=== PATIENT | female | born 1985 | race Caucasian/White ===

== ENCOUNTER 2016-11-22 20:00 | Emergency (ER) | payer OTHER ==
[2016-11-22 21:38] LABS: CONTROL LINE HCG INT CTR LINE PRESENT
[2016-11-22 21:43] LABS: ANION GAP 7 MEQ/L (8-16); BLOOD UREA NITROGEN 10 MG/DL (7-18); CALCIUM LEVEL 8.6 MG/DL (8.5-10.1); CARBON DIOXIDE LEVEL 29 MEQ/L (21-32); CHLORIDE LEVEL 103 MEQ/L (98-107); CREATININE FOR GFR 0.69 MG/DL (0.55-1.02); GLOMERULAR FILTRATION RATE > 60.0 (>60); GLUCOSE, FASTING 91 MG/DL (70-105); POTASSIUM SERUM 3.4 MEQ/L (3.5-5.1); SODIUM LEVEL 139 MEQ/L (136-145)
[2016-11-22 22:01] LABS: HCG, SERUM QUANTITATIVE 2286 MIU/ML
--- NOTE | 2016-11-22 23:10 | REPUSA ---
CLINICAL HISTORY: abdominal pain and vaginal spotting. TECHNIQUE: Transabdominal and endovaginal ultrasound of the pelvis using grayscale and spectral Doppl er flow. FINDINGS: Uterus is anteverted measuring 8.7 x 4.6 x 6.5 cm demonstrating a gestational sac with a mean sac brooks meter of 9.7 mm correlating to 5 weeks, 5 days gestation. No yolk sac was visualized although a pole was seen with CRL measuring 4.8 mm correlating to 6 weeks, 1 days gestation. No heartbeat or motion was detected. Right ovary measures 2.6 x 1.9 x 2.1 cm and left ovary measures 2.4 x 1.6 x 2.1 cm; both demonstratin g venous flow. A 1.3 x 1.7 x 1.2 cm right ovarian hemorrhagic follicle noted. IMPRESSION: No heart rate or motion was detected. While this raises suspicion for demise, given the s ize of the CRL and gestational sac, findings may still represent an early IUP. Close clinical follow- up with serial beta hCG and a short interim pelvic ultrasound is recommended to ensure a viable devel oping gestation.
--- NOTE | 2016-11-23 00:15 | EDDOCDS ---
Physician Documentation [facility] Name: Florence Paez Age: 31 yrs Sex: Female : 1985 Arrival Date: 11/22/2016 Time: 20:00 Bed 7 Private MD: [place] [facility] [place]: 11/22/16 23:47 Discharged to Home/Self Care. Impression: Threatened . - Condition is Stable. - Discharge Instructions: Threatened Miscarriage, Pelvic Rest. - Medication Reconciliation, Local Pharmacy Hours form. - Follow up: [facility] [place]; When: Tomorrow; Reason: Recheck today's complaints. - Problem is new. - Symptoms have improved. Historical: - Allergies: Vicodin; Naproxen; - Home Meds: 1. Vitamin Oral tab 1 tab once daily - PMHx: none; - PSHx: Cesearean Section; - Social history: Smoking status: Patient states was never smoker of tobacco. No barriers to communication noted, The patient speaks fluent Georgian. - Family history: Not pertinent. - : The pt / caregiver states he / she is not on anticoagulants. Home medication list is obtained from the patient. - Exposure Risk Screening:: None identified. 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 1 in. (154.94 cm) (R); Pain 4/10; 20:43 BP 129 / 74 Supine (auto/); Pulse 85; Pulse Ox 99% on R/A; dsf 20:44 BP 133 / 77 Sitting (auto/); Pulse 89; Pulse Ox 99% on R/A; dsf 20:45 Pulse Ox 99% ; dsf 20:45 BP 139 / 74 Standing (auto/); Pulse 89; Pulse Ox 99% on R/A; dsf 11/23 00:13 BP 113 / 58; Pulse 75; Resp 18; Temp 99.0; Pulse Ox 97% ; Pain 0/10; mlc 02/22 20:03 Body Mass Index 31.18 (74.84 kg, 154.94 cm) gr2 MDM: 11/22 20:36 IV Saline Lock ordered. fg 20:36 Orthostatic VS ordered. fg 20:36 Undress patient appropriately for examination ordered. fg 20:36 Set up pelvic ordered. fg 20:37 Hcg, Serum Quantitative Ordered. EDMS 20:37 Rh Only Ordered. EDMS 20:37 Urinalysis Ordered. EDMS 20:37 Urine Culture Ordered. EDMS 20:37 HCG,Serum Qualitative Ordered. EDMS 20:37 Wet Prep Ordered. EDMS 20:37 GC & Chlamydia Amplification Ordered. EDMS 20:39 Basic Metabolic Profile Ordered. EDMS 21:29 Financial registration complete. gb 21:33 [facility] Payment Agreement was scanned into [employer] and attached to record. gb 22:08 US 1st trimester Ordered. EDMS 22:40 Urinalysis Reviewed. cc10 22:40 HCG,Serum Qualitative Reviewed. cc10 22:40 Basic Metabolic Profile Reviewed. cc10 22:40 Hcg, Serum Quantitative Reviewed. cc10 22:40 Rh Only Reviewed. cc10 22:40 Wet Prep Reviewed. cc10 22:50 TRANSVAGINAL US Ordered. EDMS 22:50 DUPLEX SCAN LIMITED (DOPPLER) Ordered. EDMS Signatures: Dispatcher [employer] EDMS Sabrina Hogan, Reg Reg Lukasz James, POLLY PAJustus cc10 Melinda Rodriguez,RN RN [facility] Char Silva MD MD Lyssa Malagon RN RN tm5 The chart was reviewed and I authenticate all verbal orders and agree with the evaluation and treatment provided.Attachments: 21:33 [facility] [place] Payment Agreement gb MTDD
--- NOTE | 2016-11-23 00:15 | EDDOCDS ---
Nurse's Notes [facility] Name: Florence Paez Age: 31 yrs Sex: Female : 1985 Arrival Date: 11/22/2016 Time: 20:00 Bed 7 Private MD: WILFREDO Pacheco Diagnosis: Threatened Presentation: 11/22 20:05 Presenting complaint: Patient states: per pt she is about 8 weeks with tm5 pinkish/brown discharge since yesterday with pressure to her lower abdomen as well, vaginal discharge is now more red in color tonight also. Risk factors: The patient reports no loss of conciousness prior to arrival. This patient has not had a hysterectomy. This patient has not begun menopause. Adult Sepsis Screening: The patient does not have new or worsening altered mentation. Patient's respiratory rate is less than 22. Systolic blood pressure is greater than 100. Patient has a qSOFA score of 0- Negative Sepsis Screen. Suicide/Homicide risk assessment- the patient denies having any suicidal and/or homicidal ideations and does not present with any other emotional, behavioral or mental health complaints. Status: Patient is not a human service technician or dependent. Transition of care: patient was not received from another setting of care. 20:05 Acuity: MAJO Level 3 tm5 20:05 Method Of Arrival: Walkin/Carried/Asstd tm5 Triage Assessment: 20:07 General: Appears in no apparent distress, Behavior is appropriate for age, cooperative. tm5 Pain: Denies pain. Pt Declines HIV testing. Neurological: Level of Consciousness is awake, alert, Oriented to person, place, time. Respiratory: Airway is patent Respiratory effort is even, unlabored, Respiratory pattern is regular, symmetrical. : Reports vaginal bleeding that is brown spotty since yesterday. Derm: Skin is pink, warm & dry. CORRAL BOSS: 20:07 LMP 09/26/2016, Verified, EDC 07/03/2017, Gestational age from LMP: 8 weeks 2 tm5 days Historical: - Allergies: Vicodin; Naproxen; - Home Meds: 1. Vitamin Oral tab 1 tab once daily - PMHx: none; - PSHx: Cesearean Section; - Social history: Smoking status: Patient states was never smoker of tobacco. No barriers to communication noted, The patient speaks fluent Bengali. - Family history: Not pertinent. - : The pt / caregiver states he / she is not on anticoagulants. Home medication list is obtained from the patient. - Exposure Risk Screening:: None identified. Screenin:09 Screening information is obtained from the patient. Fall risk: No risks identified. tm5 Assistance ADL's: requires no assistance with activities of daily living. Abuse/DV Screen: The patient / caregiver reports he/she is: not in a situation that causes fear, pain or injury. Nutritional screening: No deficits noted. Advance Directives: There is no active DNR order. home support is adequate. Assessment: 20:48 Adult Sepsis Screening: The patient does not have new or worsening altered mentation. dsf Patient's respiratory rate is less than 22. Systolic blood pressure is greater than 100. Patient has a qSOFA score of 0- Negative Sepsis Screen. General: Appears in no apparent distress, Behavior is appropriate for age, cooperative. Pain: Location: right lower quadrant and left lower quadrant Pain currently is 2 out of 10 on a pain scale. Quality of pain is described as pressure. Neurological: Level of Consciousness is awake, alert. Cardiovascular: Capillary refill < 3 seconds. Respiratory: Airway is patent Respiratory effort is even, unlabored, Respiratory pattern is regular, symmetrical. GI: Abdomen is non- distended Reports lower abdominal pain. : Reports vaginal bleeding that is spotty since yesterday. Derm: Skin is pink, warm & dry. 21:00 General: Appears in no apparent distress, comfortable, Behavior is cooperative, mlc pleasant. Pain: Location: right upper quadrant, left upper quadrant, right lower quadrant and left lower quadrant Pain currently is 7 out of 10 on a pain scale. Quality of pain is described as pressure, stabbing. Neurological: Level of Consciousness is awake, alert, Oriented to person, place, time. Neurological: Denies dizziness. Respiratory: Airway is patent Respiratory effort is even, unlabored, Respiratory pattern is regular. GI: Abdomen is non- distended Bowel sounds present X 4 quads. Abd is soft and non tender X 4 quads. Derm: Skin is normal. 21:22 Reassessment: Patient appears in no apparent distress at this time. pelvic exam mlc complete. pt tolerated well. . 22:14 Reassessment: Patient appears in no apparent distress at this time. no changes since mlc prior. resp easy/unlabored. . 11/23 00:13 General: Appears in no apparent distress, comfortable, Behavior is cooperative. Pain: mlc Denies pain. Neurological: Level of Consciousness is awake, alert, Oriented to person, place, time. Respiratory: Airway is patent Respiratory effort is even, unlabored, Respiratory pattern is regular. Derm: Skin is normal. Vital Signs: 11/22 20:03 BP 131 / 58; Pulse 80; Resp 18 S; Temp 98.1; Pulse Ox 100% on R/A; Weight 74.84 kg (R); gr2 Height 5 ft. 1 in. (154.94 cm) (R); Pain 4/10; 20:43 BP 129 / 74 Supine (auto/); Pulse 85; Pulse Ox 99% on R/A; dsf 20:44 BP 133 / 77 Sitting (auto/); Pulse 89; Pulse Ox 99% on R/A; dsf 20:45 Pulse Ox 99% ; dsf 20:45 BP 139 / 74 Standing (auto/); Pulse 89; Pulse Ox 99% on R/A; dsf 11/23 00:13 BP 113 / 58; Pulse 75; Resp 18; Temp 99.0; Pulse Ox 97% ; Pain 0/10; mlc 11/22 20:03 Body Mass Index 31.18 (74.84 kg, 154.94 cm) gr2 Vitals: 11/22 20:03 Log In Time: November 22, 2016 at 20:03. gr2 ED Course: 20:02 Patient visited by Cedric Joyner. gr2 20:02 [place] [facility] [place]. gr2 20:02 Patient moved to Waiting gr2 20:04 Patient visited by Cedric Joyner. gr2 20:04 Patient moved to Pre RCE gr2 20:07 Triage Initiated tm5 20:07 Family accompanied patient. tm5 20:23 Char Silva MD is Attending Physician. fg 20:23 Patient visited by Char Silva MD. fg 20:23 Patient moved to 7 ttb 21:00 Melinda Rodriguez,RAJAN is Primary Nurse. mlc 21:00 The patient / caregiver is instructed regarding the plan of care and ED course. mlc 21:00 Basic Metabolic Profile Sent. mlc 21:00 GC & Chlamydia Amplification Sent. mlc 21:00 HCG,Serum Qualitative Sent. mlc 21:00 Hcg, Serum Quantitative Sent. [facility] [place] 21:00 Rh Only Sent. [facility] 21:00 Urinalysis Sent. [facility] 21:00 Urine Culture Sent. [facility] 21:00 Inserted saline lock: 20 gauge in left antecubital area and blood collected. The [facility] patient tolerated the procedure well. 21:02 Patient visited by Melinda Rodriguez,RAJAN. mlc 21:21 Wet Prep Sent. [facility] 21:22 Patient visited by Melinda Rodriguez RN. [facility] 21:22 Assist provider with pelvic exam: Set up pelvic tray. Specimens sent to lab. Performed mlc by Char Silva MD Patient tolerated well. 21:31 Patient name changed from Florence\S\\S\Haake\S\ to Florence\S\Marie\S\Haake. EDMS 21:33 [facility] [place] Payment Agreement was scanned into [employer] and attached to record. gb 22:12 Patient moved to Ultrasound en 22:14 Flushed left antecubital saline lock. mlc 22:15 Patient visited by Melinda Rodriguez RN. [facility] 22:39 Patient moved to 7 [facility] 23:17 US 1st trimester Returned. EDMS 23:18 Patient visited by Char Silva MD. fg 23:47 [place], OB is Referral Physician. fg 11/23 00:13 Discontinued IV lock intact, bleeding controlled, pressure dressing applied, No mlc redness/swelling at site. Order Results: Lab Order: Hcg, Serum Quantitative; SPEC'M 11/22/16 20:47 Test: HCG, SERUM QUANTITATIVE; Value: 2286; Units: MIU/ML; Status: F Test Note: ; GESTATIONAL AGE APPROXIMATE HCG RANGE (MIU/ML) 0.2-1 WEEK 5-50 1-2 WEEKS 50-500 2-3 WEEKS 100-5,000 3-4 WEEKS 500-10,000 4-5 WEEKS 1,000-50,000 5-6 WEEKS 10,000-100,000 6-8 WEEKS 15,000-200,000 2-3 MONTHS 10,000-100,000 NON FEMALES LESS THAN 3.0 Patient samples may contain human heterophilic antibodies that could react with immunoassays to give falsely elevated or depressed results. This assay has been designed to minimize interference from heterophilic antibodies. Elevated hCG levels have also been associated with trophoblastic disease and nontrophoblastic neoplasms. The possibility of having these diseases should be considered before a diagnosis of is made. This test is not intended for use as a surrogate marker for aiding in the diagnosis or monitoring the treatment of cancer patients. [employer] [place] [employer] methodology. Lab Order: Rh Only; SPEC'M 11/22/16 20:47 Test: RH; Value: POSITIVE; Status: F Lab Order: Urinalysis; SPEC'M 11/22/16 20:47 Test: APPEARANCE, URINE; Value: CLOUDY; Range: CLEAR; Abnormal: Above high normal; Status: F Test: COLOR, URINE; Value: YELLOW; Range: YELLOW; Status: F Test: PH,URINE; Value: 7.0; Range: 5.0-9.0; Units: UNITS; Status: F Test: SPECIFIC GRAVITY URINE AUTO; Value: 1.008; Range: 1.002-1.035; Status: F Test: PROTEIN, URINE AUTO; Value: NEGATIVE; Range: NEGATIVE; Units: mg/dL; Status: F Test: GLUCOSE, URINE (UA) AUTO; Value: NEGATIVE; Range: NEGATIVE; Units: mg/dL; Status: F Test: KETONE, URINE AUTO; Value: NEGATIVE; Range: NEGATIVE; Units: mg/dL; Status: F Test: UROBILINOGEN, URINE AUTO; Value: 0.2; Range: 0.0-2.0; Units: mg/dL; Status: F Test: BILIRUBIN, URINE AUTO; Value: NEGATIVE; Range: NEGATIVE; Status: F Test: NITRITE, URINE AUTO; Value: NEGATIVE; Range: NEGATIVE; Status: F Test: LEUKOCYTE ESTERASE, URINE AUTO; Value: NEGATIVE; Range: NEGATIVE; Status: F Test: BLOOD, URINE BLOOD; Value: 1+; Range: NEGATIVE; Abnormal: Above high normal; Status: F Test: WBC, URINE AUTO; Value: 1; Range: 0-3; Units: /HPF; Status: F Test: RBC, URINE AUTO; Value: 1; Range: 0-3; Units: /HPF; Status: F Test: BACTERIA, URINE AUTO; Value: NEGATIVE; Range: NEGATIVE; Status: F Test: SQUAMOUS EPITHELIAL CELL UR AU; Value: 3; Range: 0-6; Units: /HPF; Status: F Test: HYALINE CAST, URINE AUTO; Value: 0; Range: 0-1; Units: /LPF; Status: F Test: AMORPHOUS SEDIMENT; Value: SMALL; Range: NEGATIVE; Abnormal: Above high normal; Status: F Lab Order: HCG,Serum Qualitative; SPEC' 11/22/16 20:47 Test: HCG, SERUM QUALITATIVE; Value: POSITIVE; Range: NEGATIVE; Abnormal: Abnormal; Status: F Lab Order: Wet Prep; [facility] 11/22/16 20:47 Test: WET PREP; Value: WET PREP RESULT; Status: F Test: WET PREP; Value: FEW EPITHELIAL CELLS PRESENT; Status: F Test: WET PREP; Value: FEW WBC; Status: F Test: WET PREP; Value: MANY RBC; Status: F Test: WET PREP; Value: FEW LONG RODS PRESENT; Status: F Test: WET PREP; Value: FEW SHORT RODS PRESENT; Status: F Lab Order: Basic Metabolic Profile; [facility] 11/22/16 20:47 Test: GLUCOSE, FASTING; Value: 91; Range: 70-105; Units: MG/DL; Status: F Test: BLOOD UREA NITROGEN; Value: 10; Range: 7-18; Units: MG/DL; Status: F Test: CREATININE FOR GFR; Value: 0.69; Range: 0.55-1.02; Units: MG/DL; Status: F Test: GLOMERULAR FILTRATION RATE; Value: > 60.0; Range: >60; Status: F Test: SODIUM LEVEL; Value: 139; Range: 136-145; Units: MEQ/L; Status: F Test: POTASSIUM SERUM; Value: 3.4; Range: 3.5-5.1; Abnormal: Below low normal; Units: MEQ/L; Status: F Test: CHLORIDE LEVEL; Value: 103; Range: 98-107; Units: MEQ/L; Status: F Test: CARBON DIOXIDE LEVEL; Value: 29; Range: 21-32; Units: MEQ/L; Status: F Test: ANION GAP; Value: 7; Range: 8-16; Abnormal: Below low normal; Units: MEQ/L; Status: F Test: CALCIUM LEVEL; Value: 8.6; Range: 8.5-10.1; Units: MG/DL; Status: F Test Note: ; Units are mL/min/1.73 m2 Chronic Kidney Disease Staging per NKF: Stage I & II GFR >=60 Normal to Mildly Decreased Stage III GFR 30-59 Moderately Decreased Stage IV GFR 15-29 Severely Decreased Stage V GFR <15 Very Little GFR Left ESRD GFR <15 on CANE FLUME WATCHMAN Radiology Order: US 1st trimester Test: US 1st trimester REASON FOR EXAMINATION: Abdomen Pain; ; CLINICAL HISTORY: abdominal pain and vaginal spotting.; TECHNIQUE: Transabdominal and endovaginal ultrasound of the pelvis using grayscale and spectral Doppl; er flow.; FINDINGS:; Uterus is anteverted measuring 8.7 x 4.6 x 6.5 cm demonstrating a gestational sac with a mean sac brooks; meter of 9.7 mm correlating to 5 weeks, 5 days gestation. No yolk sac was visualized although a ; pole was seen with CRL measuring 4.8 mm correlating to 6 weeks, 1 days gestation.; No heartbeat or motion was detected.; Right ovary measures 2.6 x 1.9 x 2.1 cm and left ovary measures 2.4 x 1.6 x 2.1 cm; both demonstratin; g venous flow. A 1.3 x 1.7 x 1.2 cm right ovarian hemorrhagic follicle noted.; IMPRESSION:; No heart rate or motion was detected. While this raises suspicion for demise, given the s; ize of the CRL and gestational sac, findings may still represent an early IUP. Close clinical follow-; up with serial beta hCG and a short interim pelvic ultrasound is recommended to ensure a viable devel; oping gestation.; ; Outcome: 11/22 23:47 Discharge ordered by Provider. fg 11/23 00:13 Discharge Assessment: Patient awake, alert and oriented x 3. No cognitive and/or mlc functional deficits noted. Patient verbalized understanding of disposition instructions. patient administered narcotics - no. The following High Risk Discharge criteria are identified: None. Discharged to home ambulatory, with family. Condition: good Condition: stable. Discharge instructions given to patient, Instructed on discharge instructions, follow up and referral plans. Demonstrated understanding of instructions, Pt was receptive of discharge instructions/ teaching. Ultrasound Study completed. Property sent home with patient. 00:14 [place] left the ED. [facility] [place] Signatures: Dispatcher [employer] EDSabrina Menjivar, Reg Kathryn Bo,RN RN dsf Hubert, Chelsey, RN RN ttb Cedric Joyner gr2 Melinda Rodriguez,RAJAN RN Suni Pacheco Frances, MD MD Lyssa Malagon,RN RN tm5 MTDD
--- NOTE | 2016-11-25 01:16 | EDDOCDS ---
Physician Documentation [facility] Name: Florence Paez Age: 31 yrs Sex: Female : 1985 Arrival Date: 11/22/2016 Time: 20:00 Bed 7 Private MD: [place] [facility] [place] Disposition: 11/22/16 23:47 Discharged to Home/Self Care. Impression: Threatened . - Condition is Stable. - Discharge Instructions: Threatened Miscarriage, Pelvic Rest. - Medication Reconciliation, Local Pharmacy Hours form. - Follow up: [facility] [place]; When: Tomorrow; Reason: Recheck today's complaints. - Problem is new. - Symptoms have improved. Historical: - Allergies: Vicodin; Naproxen; - Home Meds: 1. Vitamin Oral tab 1 tab once daily - PMHx: none; - PSHx: Cesearean Section; - Social history: Smoking status: Patient states was never smoker of tobacco. No barriers to communication noted, The patient speaks fluent Rwandan. - Family history: Not pertinent. - : The pt / caregiver states he / she is not on anticoagulants. Home medication list is obtained from the patient. - Exposure Risk Screening:: None identified. 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 1 in. (154.94 cm) (R); Pain 4/10; 20:43 BP 129 / 74 Supine (auto/); Pulse 85; Pulse Ox 99% on R/A; dsf 20:44 BP 133 / 77 Sitting (auto/); Pulse 89; Pulse Ox 99% on R/A; dsf 20:45 Pulse Ox 99% ; dsf 20:45 BP 139 / 74 Standing (auto/); Pulse 89; Pulse Ox 99% on R/A; dsf 11/23 00:13 BP 113 / 58; Pulse 75; Resp 18; Temp 99.0; Pulse Ox 97% ; Pain 0/10; mlc 02/22 20:03 Body Mass Index 31.18 (74.84 kg, 154.94 cm) gr2 MDM: 11/22 20:36 IV Saline Lock ordered. fg 20:36 Orthostatic VS ordered. fg 20:36 Undress patient appropriately for examination ordered. fg 20:36 Set up pelvic ordered. fg 20:37 Hcg, Serum Quantitative Ordered. EDMS 20:37 Rh Only Ordered. EDMS 20:37 Urinalysis Ordered. EDMS 20:37 Urine Culture Ordered. EDMS 20:37 HCG,Serum Qualitative Ordered. EDMS 20:37 Wet Prep Ordered. EDMS 20:37 GC & Chlamydia Amplification Ordered. EDMS 20:39 Basic Metabolic Profile Ordered. EDMS 21:29 Financial registration complete. gb 21:33 [facility] [place] Agreement was scanned into [employer] and attached to record. gb 22:08 US 1st trimester Ordered. EDMS 22:40 Urinalysis Reviewed. cc10 22:40 HCG,Serum Qualitative Reviewed. cc10 22:40 Basic Metabolic Profile Reviewed. cc10 22:40 Hcg, Serum Quantitative Reviewed. cc10 22:40 Rh Only Reviewed. cc10 22:40 Wet Prep Reviewed. cc10 22:50 TRANSVAGINAL US Ordered. EDMS 22:50 DUPLEX SCAN LIMITED (DOPPLER) Ordered. EDAK 11/23 18:21 T-Sheet-- Draft Copy was scanned into [employer] and attached to record. klr Signatures: Dispatcher [employer] EDAK Sabrina Hogan, Reg Reg gb Lukasz James, PA-C PA-C cc10 Melinda Rodriguez RN RN [facility] [place] Char Silva MD MD fg Redder, Kathie klr Matice, Tonya, RN RN tm5 The chart was reviewed and I authenticate all verbal orders and agree with the evaluation and treatment provided.Attachments: 11/22 21:33 [facility] [place] Payment Agreement gb 11/23 18:21 T-Sheet-- Draft Copy klr Chart Complete MTDD
--- NOTE | 2016-11-25 01:16 | EDDOCDS ---
Nurse's Notes [facility] Name: Florence Paez Age: 31 yrs Sex: Female : 1985 Arrival Date: 11/22/2016 Time: 20:00 Bed 7 Private MD: WILFREDO Pacheco Diagnosis: Threatened Presentation: 11/22 20:05 Presenting complaint: Patient states: per pt she is about 8 weeks with tm5 pinkish/brown discharge since yesterday with pressure to her lower abdomen as well, vaginal discharge is now more red in color tonight also. Risk factors: The patient reports no loss of conciousness prior to arrival. This patient has not had a hysterectomy. This patient has not begun menopause. Adult Sepsis Screening: The patient does not have new or worsening altered mentation. Patient's respiratory rate is less than 22. Systolic blood pressure is greater than 100. Patient has a qSOFA score of 0- Negative Sepsis Screen. Suicide/Homicide risk assessment- the patient denies having any suicidal and/or homicidal ideations and does not present with any other emotional, behavioral or mental health complaints. Status: Patient is not a special services coordinator or dependent. Transition of care: patient was not received from another setting of care. 20:05 Acuity: MAJO Level 3 tm5 20:05 Method Of Arrival: Walkin/Carried/Asstd tm5 Triage Assessment: 20:07 General: Appears in no apparent distress, Behavior is appropriate for age, cooperative. tm5 Pain: Denies pain. Pt Declines HIV testing. Neurological: Level of Consciousness is awake, alert, Oriented to person, place, time. Respiratory: Airway is patent Respiratory effort is even, unlabored, Respiratory pattern is regular, symmetrical. : Reports vaginal bleeding that is brown spotty since yesterday. Derm: Skin is pink, warm & dry. 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 Vitamin Oral tab 1 tab once daily - PMHx: none; - PSHx: Cesearean Section; - Social history: Smoking status: Patient states was never smoker of tobacco. No barriers to communication noted, The patient speaks fluent Sinhala. - Family history: Not pertinent. - : The pt / caregiver states he / she is not on anticoagulants. Home medication list is obtained from the patient. - Exposure Risk Screening:: None identified. Screenin:09 Screening information is obtained from the patient. Fall risk: No risks identified. tm5 Assistance ADL's: requires no assistance with activities of daily living. Abuse/DV Screen: The patient / caregiver reports he/she is: not in a situation that causes fear, pain or injury. Nutritional screening: No deficits noted. Advance Directives: There is no active DNR order. home support is adequate. Assessment: 20:48 Adult Sepsis Screening: The patient does not have new or worsening altered mentation. dsf Patient's respiratory rate is less than 22. Systolic blood pressure is greater than 100. Patient has a qSOFA score of 0- Negative Sepsis Screen. General: Appears in no apparent distress, Behavior is appropriate for age, cooperative. Pain: Location: right lower quadrant and left lower quadrant Pain currently is 2 out of 10 on a pain scale. Quality of pain is described as pressure. Neurological: Level of Consciousness is awake, alert. Cardiovascular: Capillary refill < 3 seconds. Respiratory: Airway is patent Respiratory effort is even, unlabored, Respiratory pattern is regular, symmetrical. GI: Abdomen is non- distended Reports lower abdominal pain. : Reports vaginal bleeding that is spotty since yesterday. Derm: Skin is pink, warm & dry. 21:00 General: Appears in no apparent distress, comfortable, Behavior is cooperative, mlc pleasant. Pain: Location: right upper quadrant, left upper quadrant, right lower quadrant and left lower quadrant Pain currently is 7 out of 10 on a pain scale. Quality of pain is described as pressure, stabbing. Neurological: Level of Consciousness is awake, alert, Oriented to person, place, time. Neurological: Denies dizziness. Respiratory: Airway is patent Respiratory effort is even, unlabored, Respiratory pattern is regular. GI: Abdomen is non- distended Bowel sounds present X 4 quads. Abd is soft and non tender X 4 quads. Derm: Skin is normal. 21:22 Reassessment: Patient appears in no apparent distress at this time. pelvic exam mlc complete. pt tolerated well. . 22:14 Reassessment: Patient appears in no apparent distress at this time. no changes since mlc prior. resp easy/unlabored. . 11/23 00:13 General: Appears in no apparent distress, comfortable, Behavior is cooperative. Pain: mlc Denies pain. Neurological: Level of Consciousness is awake, alert, Oriented to person, place, time. Respiratory: Airway is patent Respiratory effort is even, unlabored, Respiratory pattern is regular. Derm: Skin is normal. Vital Signs: 11/22 20:03 BP 131 / 58; Pulse 80; Resp 18 S; Temp 98.1; Pulse Ox 100% on R/A; Weight 74.84 kg (R); gr2 Height 5 ft. 1 in. (154.94 cm) (R); Pain 4/10; 20:43 BP 129 / 74 Supine (auto/); Pulse 85; Pulse Ox 99% on R/A; dsf 20:44 BP 133 / 77 Sitting (auto/); Pulse 89; Pulse Ox 99% on R/A; dsf 20:45 Pulse Ox 99% ; dsf 20:45 BP 139 / 74 Standing (auto/); Pulse 89; Pulse Ox 99% on R/A; dsf 11/23 00:13 BP 113 / 58; Pulse 75; Resp 18; Temp 99.0; Pulse Ox 97% ; Pain 0/10; mlc 11/22 20:03 Body Mass Index 31.18 (74.84 kg, 154.94 cm) gr2 Vitals: 11/22 20:03 Log In Time: November 22, 2016 at 20:03. gr2 ED Course: 20:02 Patient visited by Cedric Joyner. gr2 20:02 Tara [facility] is Private Physician. gr2 20:02 Patient moved to Waiting gr2 20:04 Patient visited by Cedric Joyner. gr2 20:04 Patient moved to Pre RCE gr2 20:07 Triage Initiated tm5 20:07 Family accompanied patient. tm5 20:23 Char Silva MD is Attending Physician. fg 20:23 Patient visited by Char Silva MD. fg 20:23 Patient moved to 7 ttb 21:00 Melinda Rodriguez,RAJAN is Primary Nurse. mlc 21:00 The patient / caregiver is instructed regarding the plan of care and ED course. mlc 21:00 Basic Metabolic Profile Sent. mlc 21:00 GC & Chlamydia Amplification Sent. mlc 21:00 HCG,Serum Qualitative Sent. mlc 21:00 Hcg, Serum Quantitative Sent. [facility] [place] 21:00 Rh Only Sent. [facility] [place] 21:00 Urinalysis Sent. [facility] [place] 21:00 Urine Culture Sent. [facility] [place] 21:00 Inserted saline lock: 20 gauge in left antecubital area and blood collected. The [facility] [place] patient tolerated the procedure well. 21:02 Patient visited by Melinda Rodriguez,RN. mlc 21:21 Wet Prep Sent. [facility] [place] 21:22 Patient visited by Melinda Rodriguez,RAJAN. [facility] [place] 21:22 Assist provider with pelvic exam: Set up pelvic tray. Specimens sent to lab. Performed mlc by Char Silva MD Patient tolerated well. 21:31 Patient name changed from Florence\S\\S\Haake\S\ to Florence\S\Marie\S\Haake. EDMS 21:33 [facility] [place] Payment Agreement was scanned into [employer] and attached to record. gb 22:12 Patient moved to Ultrasound en 22:14 Flushed left antecubital saline lock. mlc 22:15 Patient visited by Melinda Rodriguez RN. [facility] 22:39 Patient moved to 7 [facility] 23:17 US 1st trimester Returned. EDMS 23:18 Patient visited by Char Silva MD. fg 23:47 [place], OB is Referral Physician. fg 11/23 00:13 Discontinued IV lock intact, bleeding controlled, pressure dressing applied, No mlc redness/swelling at site. 18:21 T-Sheet-- Draft Copy was scanned into [employer] and attached to record. klr Order Results: Lab Order: Hcg, Serum Quantitative; SPEC'M 11/22/16 20:47 Test: HCG, SERUM QUANTITATIVE; Value: 2286; Units: MIU/ML; Status: F Test Note: ; GESTATIONAL AGE APPROXIMATE HCG RANGE (MIU/ML) 0.2-1 WEEK 5-50 1-2 WEEKS 50-500 2-3 WEEKS 100-5,000 3-4 WEEKS 500-10,000 4-5 WEEKS 1,000-50,000 5-6 WEEKS 10,000-100,000 6-8 WEEKS 15,000-200,000 2-3 MONTHS 10,000-100,000 NON FEMALES LESS THAN 3.0 Patient samples may contain human heterophilic antibodies that could react with immunoassays to give falsely elevated or depressed results. This assay has been designed to minimize interference from heterophilic antibodies. Elevated hCG levels have also been associated with trophoblastic disease and nontrophoblastic neoplasms. The possibility of having these diseases should be considered before a diagnosis of is made. This test is not intended for use as a surrogate marker for aiding in the diagnosis or monitoring the treatment of cancer patients. [employer] methodology. Lab Order: Rh Only; SPEC'M 11/22/16 20:47 Test: RH; Value: POSITIVE; Status: F Lab Order: Urinalysis; SPEC'M 11/22/16 20:47 Test: APPEARANCE, URINE; Value: CLOUDY; Range: CLEAR; Abnormal: Above high normal; Status: F Test: COLOR, URINE; Value: YELLOW; Range: YELLOW; Status: F Test: PH,URINE; Value: 7.0; Range: 5.0-9.0; Units: UNITS; Status: F Test: SPECIFIC GRAVITY URINE AUTO; Value: 1.008; Range: 1.002-1.035; Status: F Test: PROTEIN, URINE AUTO; Value: NEGATIVE; Range: NEGATIVE; Units: mg/dL; Status: F Test: GLUCOSE, URINE (UA) AUTO; Value: NEGATIVE; Range: NEGATIVE; Units: mg/dL; Status: F Test: KETONE, URINE AUTO; Value: NEGATIVE; Range: NEGATIVE; Units: mg/dL; Status: F Test: UROBILINOGEN, URINE AUTO; Value: 0.2; Range: 0.0-2.0; Units: mg/dL; Status: F Test: BILIRUBIN, URINE AUTO; Value: NEGATIVE; Range: NEGATIVE; Status: F Test: NITRITE, URINE AUTO; Value: NEGATIVE; Range: NEGATIVE; Status: F Test: LEUKOCYTE ESTERASE, URINE AUTO; Value: NEGATIVE; Range: NEGATIVE; Status: F Test: BLOOD, URINE BLOOD; Value: 1+; Range: NEGATIVE; Abnormal: Above high normal; Status: F Test: WBC, URINE AUTO; Value: 1; Range: 0-3; Units: /HPF; Status: F Test: RBC, URINE AUTO; Value: 1; Range: 0-3; Units: /HPF; Status: F Test: BACTERIA, URINE AUTO; Value: NEGATIVE; Range: NEGATIVE; Status: F Test: SQUAMOUS EPITHELIAL CELL UR AU; Value: 3; Range: 0-6; Units: /HPF; Status: F Test: HYALINE CAST, URINE AUTO; Value: 0; Range: 0-1; Units: /LPF; Status: F Test: AMORPHOUS SEDIMENT; Value: SMALL; Range: NEGATIVE; Abnormal: Above high normal; Status: F Lab Order: Urine Culture; SPEC'M 11/22/16 20:47 Test: URINE CULTURE; Value: <EXTERNAL COMMENT eCWMed> FULL REPORT IN LAB NOTES (eCW and Medent).; Status: F Test: URINE CULTURE; Value: URINE CULTURE RESULT SPECIMEN APPEARS CONTAMINATED; Status: F Lab Order: HCG,Serum Qualitative; SPECM 11/22/16 20:47 Test: HCG, SERUM QUALITATIVE; Value: POSITIVE; Range: NEGATIVE; Abnormal: Abnormal; Status: F Lab Order: Wet Prep; SPEC11/22/16 20:47 Test: WET PREP; Value: WET PREP RESULT; Status: F Test: WET PREP; Value: FEW EPITHELIAL CELLS PRESENT; Status: F Test: WET PREP; Value: FEW WBC; Status: F Test: WET PREP; Value: MANY RBC; Status: F Test: WET PREP; Value: FEW LONG RODS PRESENT; Status: F Test: WET PREP; Value: FEW SHORT RODS PRESENT; Status: F Lab Order: GC & Chlamydia Amplification; SPEC11/22/16 20:47 Test: CHLAMYDIA DNA AMPLIFICATION; Value: NEGATIVE; Range: NEGATIVE; Status: F Test: GC DNA AMPLIFICATION; Value: NEGATIVE; Range: NEGATIVE; Status: F Lab Order: Basic Metabolic Profile; SPEC11/22/16 20:47 Test: GLUCOSE, FASTING; Value: 91; Range: 70-105; Units: MG/DL; Status: F Test: BLOOD UREA NITROGEN; Value: 10; Range: 7-18; Units: MG/DL; Status: F Test: CREATININE FOR GFR; Value: 0.69; Range: 0.55-1.02; Units: MG/DL; Status: F Test: GLOMERULAR FILTRATION RATE; Value: > 60.0; Range: >60; Status: F Test: SODIUM LEVEL; Value: 139; Range: 136-145; Units: MEQ/L; Status: F Test: POTASSIUM SERUM; Value: 3.4; Range: 3.5-5.1; Abnormal: Below low normal; Units: MEQ/L; Status: F Test: CHLORIDE LEVEL; Value: 103; Range: 98-107; Units: MEQ/L; Status: F Test: CARBON DIOXIDE LEVEL; Value: 29; Range: 21-32; Units: MEQ/L; Status: F Test: ANION GAP; Value: 7; Range: 8-16; Abnormal: Below low normal; Units: MEQ/L; Status: F Test: CALCIUM LEVEL; Value: 8.6; Range: 8.5-10.1; Units: MG/DL; Status: F Test Note: ; Units are mL/min/1.73 m2 Chronic Kidney Disease Staging per NKF: Stage I & II GFR >=60 Normal to Mildly Decreased Stage III GFR 30-59 Moderately Decreased Stage IV GFR 15-29 Severely Decreased Stage V GFR <15 Very Little GFR Left ESRD GFR <15 on SQL SERVER DBA DEVELOPER Radiology Order: US 1st trimester Test: US 1st trimester REASON FOR EXAMINATION: Abdomen Pain; ; CLINICAL HISTORY: abdominal pain and vaginal spotting.; TECHNIQUE: Transabdominal and endovaginal ultrasound of the pelvis using grayscale and spectral Doppl; er flow.; FINDINGS:; Uterus is anteverted measuring 8.7 x 4.6 x 6.5 cm demonstrating a gestational sac with a mean sac brooks; meter of 9.7 mm correlating to 5 weeks, 5 days gestation. No yolk sac was visualized although a ; pole was seen with CRL measuring 4.8 mm correlating to 6 weeks, 1 days gestation.; No heartbeat or motion was detected.; Right ovary measures 2.6 x 1.9 x 2.1 cm and left ovary measures 2.4 x 1.6 x 2.1 cm; both demonstratin; g venous flow. A 1.3 x 1.7 x 1.2 cm right ovarian hemorrhagic follicle noted.; IMPRESSION:; No heart rate or motion was detected. While this raises suspicion for demise, given the s; ize of the CRL and gestational sac, findings may still represent an early IUP. Close clinical follow-; up with serial beta hCG and a short interim pelvic ultrasound is recommended to ensure a viable devel; oping gestation.; ; Outcome: 11/22 23:47 Discharge ordered by Provider. fg 11/23 00:13 Discharge Assessment: Patient awake, alert and oriented x 3. No cognitive and/or mlc functional deficits noted. Patient verbalized understanding of disposition instructions. patient administered narcotics - no. The following High Risk Discharge criteria are identified: None. Discharged to home ambulatory, with family. Condition: good Condition: stable. Discharge instructions given to patient, Instructed on discharge instructions, follow up and referral plans. Demonstrated understanding of instructions, Pt was receptive of discharge instructions/ teaching. Ultrasound Study completed. Property sent home with patient. 00:14 Patient left the ED. mlc Signatures: Dispatcher [employer] EDMS Sabrina Hogan, Reg Reg gb Kathryn Knapp,RN RN Chelsey Garcia RN RN ttCedric Borrego gr2 Melinda Rodriguez RN RN Suni Pacheco Frances, MD MD fg Redder, Kathie klr Matice, Tonya,RN RN tm5 Chart Complete GRETA
--- NOTE | 2016-11-25 01:16 | EDDOCDS ---
Physician Documentation [facility] Name: Florence Paez Age: 31 yrs Sex: Female : 1985 Arrival Date: 11/22/2016 Time: 20:00 Bed 7 Private MD: Tara [place] Disposition: 11/22/16 23:47 Discharged to Home/Self Care. Impression: Threatened . - Condition is Stable. - Discharge Instructions: Threatened Miscarriage, Pelvic Rest. - Medication Reconciliation, Local Pharmacy Hours form. - Follow up: [facility] [place]; When: Tomorrow; Reason: Recheck today's complaints. - Problem is new. - Symptoms have improved. Historical: - Allergies: Vicodin; Naproxen; - Home Meds: 1. Vitamin Oral tab 1 tab once daily - PMHx: none; - PSHx: Cesearean Section; - Social history: Smoking status: Patient states was never smoker of tobacco. No barriers to communication noted, The patient speaks fluent Ghanaian. - Family history: Not pertinent. - : The pt / caregiver states he / she is not on anticoagulants. Home medication list is obtained from the patient. - Exposure Risk Screening:: None identified. 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 1 in. (154.94 cm) (R); Pain 4/10; 20:43 BP 129 / 74 Supine (auto/); Pulse 85; Pulse Ox 99% on R/A; dsf 20:44 BP 133 / 77 Sitting (auto/); Pulse 89; Pulse Ox 99% on R/A; dsf 20:45 Pulse Ox 99% ; dsf 20:45 BP 139 / 74 Standing (auto/); Pulse 89; Pulse Ox 99% on R/A; dsf 11/23 00:13 BP 113 / 58; Pulse 75; Resp 18; Temp 99.0; Pulse Ox 97% ; Pain 0/10; mlc 02/22 20:03 Body Mass Index 31.18 (74.84 kg, 154.94 cm) gr2 MDM: 11/22 20:36 IV Saline Lock ordered. fg 20:36 Orthostatic VS ordered. fg 20:36 Undress patient appropriately for examination ordered. fg 20:36 Set up pelvic ordered. fg 20:37 Hcg, Serum Quantitative Ordered. EDMS 20:37 Rh Only Ordered. EDMS 20:37 Urinalysis Ordered. EDMS 20:37 Urine Culture Ordered. EDMS 20:37 HCG,Serum Qualitative Ordered. EDMS 20:37 Wet Prep Ordered. EDMS 20:37 GC & Chlamydia Amplification Ordered. EDMS 20:39 Basic Metabolic Profile Ordered. EDMS 21:29 Financial registration complete. gb 21:33 [facility] [place] was scanned into [employer] and attached to record. gb 22:08 US 1st trimester Ordered. EDMS 22:40 Urinalysis Reviewed. cc10 22:40 HCG,Serum Qualitative Reviewed. cc10 22:40 Basic Metabolic Profile Reviewed. cc10 22:40 Hcg, Serum Quantitative Reviewed. cc10 22:40 Rh Only Reviewed. cc10 22:40 Wet Prep Reviewed. cc10 22:50 TRANSVAGINAL US Ordered. EDMS 22:50 DUPLEX SCAN LIMITED (DOPPLER) Ordered. EDWA 11/23 18:21 T-Sheet-- Draft Copy was scanned into [employer] and attached to record. klr Signatures: Dispatcher [employer] EDWA Sabrina Hogan, Reg Reg gb Lukasz James, PA-C PA-C cc10 Melinda Rodriguez RN RN [facility] Char Silva MD MD fg Redder, Kathie klr Matice, Tonya, RN RN tm5 The chart was reviewed and I authenticate all verbal orders and agree with the evaluation and treatment provided.Attachments: 11/22 21:33 [facility] [place] Agreement gb 11/23 18:21 T-Sheet-- Draft Copy klr Chart Complete MTDD
--- NOTE | 2016-11-25 20:44 | EDDOCDS ---
Physician Documentation [facility] Name: Florence Paez Age: 31 yrs Sex: Female : 1985 Arrival Date: 11/22/2016 Time: 20:00 Bed 7 Private MD: Tara [facility] [place] Disposition: 11/22/16 23:47 Discharged to Home/Self Care. Impression: Threatened . - Condition is Stable. - Discharge Instructions: Threatened Miscarriage, Pelvic Rest. - Medication Reconciliation, Local Pharmacy Hours form. - Follow up: OB [place]; When: Tomorrow; Reason: Recheck today's complaints. - Problem is new. - Symptoms have improved. Historical: - Allergies: Vicodin; Naproxen; - Home Meds: 1. Vitamin Oral tab 1 tab once daily - PMHx: none; - PSHx: Cesearean Section; - Social history: Smoking status: Patient states was never smoker of tobacco. No barriers to communication noted, The patient speaks fluent Malagasy. - Family history: Not pertinent. - : The pt / caregiver states he / she is not on anticoagulants. Home medication list is obtained from the patient. - Exposure Risk Screening:: None identified. 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 1 in. (154.94 cm) (R); Pain 4/10; 20:43 BP 129 / 74 Supine (auto/); Pulse 85; Pulse Ox 99% on R/A; dsf 20:44 BP 133 / 77 Sitting (auto/); Pulse 89; Pulse Ox 99% on R/A; dsf 20:45 Pulse Ox 99% ; dsf 20:45 BP 139 / 74 Standing (auto/); Pulse 89; Pulse Ox 99% on R/A; dsf 11/23 00:13 BP 113 / 58; Pulse 75; Resp 18; Temp 99.0; Pulse Ox 97% ; Pain 0/10; mlc 02/22 20:03 Body Mass Index 31.18 (74.84 kg, 154.94 cm) gr2 MDM: 11/22 20:36 IV Saline Lock ordered. fg 20:36 Orthostatic VS ordered. fg 20:36 Undress patient appropriately for examination ordered. fg 20:36 Set up pelvic ordered. fg 20:37 Hcg, Serum Quantitative Ordered. EDMS 20:37 Rh Only Ordered. EDMS 20:37 Urinalysis Ordered. EDMS 20:37 Urine Culture Ordered. EDMS 20:37 HCG,Serum Qualitative Ordered. EDMS 20:37 Wet Prep Ordered. EDMS 20:37 GC & Chlamydia Amplification Ordered. EDMS 20:39 Basic Metabolic Profile Ordered. EDMS 21:29 Financial registration complete. gb 21:33 [facility] Payment Agreement was scanned into [employer] and attached to record. gb 22:08 US 1st trimester Ordered. EDMS 22:40 Urinalysis Reviewed. cc10 22:40 HCG,Serum Qualitative Reviewed. cc10 22:40 Basic Metabolic Profile Reviewed. cc10 22:40 Hcg, Serum Quantitative Reviewed. cc10 22:40 Rh Only Reviewed. cc10 22:40 Wet Prep Reviewed. cc10 22:50 TRANSVAGINAL US Ordered. EDMS 22:50 DUPLEX SCAN LIMITED (DOPPLER) Ordered. EDMD 11/23 18:21 T-Sheet-- Draft Copy was scanned into [employer] and attached to record. klr Signatures: Dispatcher [employer] EDMD Sabrina Hogan, Reg Reg gb Lukasz James, PA-C PA-C cc10 Melinda Rodriguez RN RN [facility] [place] Char Silva MD MD fg Redder, Kathie klr Matice, Tonya, RN RN tm5 The chart was reviewed and I authenticate all verbal orders and agree with the evaluation and treatment provided.Attachments: 11/22 21:33 [facility] Payment Agreement gb 11/23 18:21 T-Sheet-- Draft Copy klr Chart Complete MTDD
--- NOTE | 2016-11-25 20:44 | EDDOCDS ---
Nurse's Notes [facility] Name: Florence Paez Age: 31 yrs Sex: Female : 1985 Arrival Date: 11/22/2016 Time: 20:00 Bed 7 Private MD: WILFREDO Pacheco Diagnosis: Threatened Presentation: 11/22 20:05 Presenting complaint: Patient states: per pt she is about 8 weeks with tm5 pinkish/brown discharge since yesterday with pressure to her lower abdomen as well, vaginal discharge is now more red in color tonight also. Risk factors: The patient reports no loss of conciousness prior to arrival. This patient has not had a hysterectomy. This patient has not begun menopause. Adult Sepsis Screening: The patient does not have new or worsening altered mentation. Patient's respiratory rate is less than 22. Systolic blood pressure is greater than 100. Patient has a qSOFA score of 0- Negative Sepsis Screen. Suicide/Homicide risk assessment- the patient denies having any suicidal and/or homicidal ideations and does not present with any other emotional, behavioral or mental health complaints. Status: Patient is not a visitor services specialist or dependent. Transition of care: patient was not received from another setting of care. 20:05 Acuity: MAJO Level 3 tm5 20:05 Method Of Arrival: Walkin/Carried/Asstd tm5 Triage Assessment: 20:07 General: Appears in no apparent distress, Behavior is appropriate for age, cooperative. tm5 Pain: Denies pain. Pt Declines HIV testing. Neurological: Level of Consciousness is awake, alert, Oriented to person, place, time. Respiratory: Airway is patent Respiratory effort is even, unlabored, Respiratory pattern is regular, symmetrical. : Reports vaginal bleeding that is brown spotty since yesterday. Derm: Skin is pink, warm & dry. OPERATIONS PLANNER: 20:07 LMP 09/26/2016, Verified, EDC 07/03/2017, Gestational age from LMP: 8 weeks 2 tm5 days Historical: - Allergies: Vicodin; Naproxen; - Home Meds: 1. Vitamin Oral tab 1 tab once daily - PMHx: none; - PSHx: Cesearean Section; - Social history: Smoking status: Patient states was never smoker of tobacco. No barriers to communication noted, The patient speaks fluent Sinhala. - Family history: Not pertinent. - : The pt / caregiver states he / she is not on anticoagulants. Home medication list is obtained from the patient. - Exposure Risk Screening:: None identified. Screenin:09 Screening information is obtained from the patient. Fall risk: No risks identified. tm5 Assistance ADL's: requires no assistance with activities of daily living. Abuse/DV Screen: The patient / caregiver reports he/she is: not in a situation that causes fear, pain or injury. Nutritional screening: No deficits noted. Advance Directives: There is no active DNR order. home support is adequate. Assessment: 20:48 Adult Sepsis Screening: The patient does not have new or worsening altered mentation. dsf Patient's respiratory rate is less than 22. Systolic blood pressure is greater than 100. Patient has a qSOFA score of 0- Negative Sepsis Screen. General: Appears in no apparent distress, Behavior is appropriate for age, cooperative. Pain: Location: right lower quadrant and left lower quadrant Pain currently is 2 out of 10 on a pain scale. Quality of pain is described as pressure. Neurological: Level of Consciousness is awake, alert. Cardiovascular: Capillary refill < 3 seconds. Respiratory: Airway is patent Respiratory effort is even, unlabored, Respiratory pattern is regular, symmetrical. GI: Abdomen is non- distended Reports lower abdominal pain. : Reports vaginal bleeding that is spotty since yesterday. Derm: Skin is pink, warm & dry. 21:00 General: Appears in no apparent distress, comfortable, Behavior is cooperative, mlc pleasant. Pain: Location: right upper quadrant, left upper quadrant, right lower quadrant and left lower quadrant Pain currently is 7 out of 10 on a pain scale. Quality of pain is described as pressure, stabbing. Neurological: Level of Consciousness is awake, alert, Oriented to person, place, time. Neurological: Denies dizziness. Respiratory: Airway is patent Respiratory effort is even, unlabored, Respiratory pattern is regular. GI: Abdomen is non- distended Bowel sounds present X 4 quads. Abd is soft and non tender X 4 quads. Derm: Skin is normal. 21:22 Reassessment: Patient appears in no apparent distress at this time. pelvic exam mlc complete. pt tolerated well. . 22:14 Reassessment: Patient appears in no apparent distress at this time. no changes since mlc prior. resp easy/unlabored. . 11/23 00:13 General: Appears in no apparent distress, comfortable, Behavior is cooperative. Pain: mlc Denies pain. Neurological: Level of Consciousness is awake, alert, Oriented to person, place, time. Respiratory: Airway is patent Respiratory effort is even, unlabored, Respiratory pattern is regular. Derm: Skin is normal. Vital Signs: 11/22 20:03 BP 131 / 58; Pulse 80; Resp 18 S; Temp 98.1; Pulse Ox 100% on R/A; Weight 74.84 kg (R); gr2 Height 5 ft. 1 in. (154.94 cm) (R); Pain 4/10; 20:43 BP 129 / 74 Supine (auto/); Pulse 85; Pulse Ox 99% on R/A; dsf 20:44 BP 133 / 77 Sitting (auto/); Pulse 89; Pulse Ox 99% on R/A; dsf 20:45 Pulse Ox 99% ; dsf 20:45 BP 139 / 74 Standing (auto/); Pulse 89; Pulse Ox 99% on R/A; dsf 11/23 00:13 BP 113 / 58; Pulse 75; Resp 18; Temp 99.0; Pulse Ox 97% ; Pain 0/10; mlc 11/22 20:03 Body Mass Index 31.18 (74.84 kg, 154.94 cm) gr2 Vitals: 11/22 20:03 Log In Time: November 22, 2016 at 20:03. gr2 ED Course: 20:02 Patient visited by Cedric Joyner. gr2 20:02 Tara [place] [facility] [place] is Private Physician. gr2 20:02 Patient moved to Waiting gr2 20:04 Patient visited by Cedric Joyner. gr2 20:04 Patient moved to Pre RCE gr2 20:07 Triage Initiated tm5 20:07 Family accompanied patient. tm5 20:23 Char Silva MD is Attending Physician. fg 20:23 Patient visited by Char Silva MD. fg 20:23 Patient moved to 7 ttb 21:00 Melinda Rodriguez,RAJAN is Primary Nurse. mlc 21:00 The patient / caregiver is instructed regarding the plan of care and ED course. mlc 21:00 Basic Metabolic Profile Sent. mlc 21:00 GC & Chlamydia Amplification Sent. mlc 21:00 HCG,Serum Qualitative Sent. mlc 21:00 Hcg, Serum Quantitative [place]. [facility] [place] Rh Only [place]. [facility] [place] Urinalysis Sent. [facility] [place]:00 Urine Culture Sent. [facility] [place]:00 Inserted saline lock: 20 gauge in left antecubital area and blood collected. [place] [facility] [place] tolerated the procedure well. 21:02 Patient visited by Melinda Rodriguez,RN. mlc 21:21 Wet Prep Sent. [facility] [place]:22 Patient visited by Melinda Rodriguez,RAJAN. [facility] [place]:22 Assist provider with pelvic exam: Set up pelvic tray. Specimens sent to lab. Performed mlc by Char Silva MD Patient tolerated well. 21:31 Patient name changed from Florence\S\\S\Haake\S\ to Florence\S\Marie\S\Haake. EDMS 21:33 [facility] was scanned into [employer] and attached to record. gb 22:12 Patient moved to Ultrasound en 22:14 Flushed left antecubital saline lock. mlc 22:15 Patient visited by Melinda Rodriguez RN. [facility] 22:39 Patient moved to 7 [facility] 23:17 US 1st trimester Returned. EDMS 23:18 Patient visited by Char Silva MD. fg 23:47 Magna, OB is Referral Physician. fg 11/23 00:13 Discontinued IV lock intact, bleeding controlled, pressure dressing applied, No mlc redness/swelling at site. 18:21 T-Sheet-- Draft Copy was scanned into [employer] and attached to record. klr Order Results: Lab Order: Hcg, Serum Quantitative; SPEC'M 11/22/16 20:47 Test: HCG, SERUM QUANTITATIVE; Value: 2286; Units: MIU/ML; Status: F Test Note: ; GESTATIONAL AGE APPROXIMATE HCG RANGE (MIU/ML) 0.2-1 WEEK 5-50 1-2 WEEKS 50-500 2-3 WEEKS 100-5,000 3-4 WEEKS 500-10,000 4-5 WEEKS 1,000-50,000 5-6 WEEKS 10,000-100,000 6-8 WEEKS 15,000-200,000 2-3 MONTHS 10,000-100,000 NON FEMALES LESS THAN 3.0 Patient samples may contain human heterophilic antibodies that could react with immunoassays to give falsely elevated or depressed results. This assay has been designed to minimize interference from heterophilic antibodies. Elevated hCG levels have also been associated with trophoblastic disease and nontrophoblastic neoplasms. The possibility of having these diseases should be considered before a diagnosis of is made. This test is not intended for use as a surrogate marker for aiding in the diagnosis or monitoring the treatment of cancer patients. [employer] methodology. Lab Order: Rh Only; SPEC'M 11/22/16 20:47 Test: RH; Value: POSITIVE; Status: F Lab Order: Urinalysis; SPEC'M 11/22/16 20:47 Test: APPEARANCE, URINE; Value: CLOUDY; Range: CLEAR; Abnormal: Above high normal; Status: F Test: COLOR, URINE; Value: YELLOW; Range: YELLOW; Status: F Test: PH,URINE; Value: 7.0; Range: 5.0-9.0; Units: UNITS; Status: F Test: SPECIFIC GRAVITY URINE AUTO; Value: 1.008; Range: 1.002-1.035; Status: F Test: PROTEIN, URINE AUTO; Value: NEGATIVE; Range: NEGATIVE; Units: mg/dL; Status: F Test: GLUCOSE, URINE (UA) AUTO; Value: NEGATIVE; Range: NEGATIVE; Units: mg/dL; Status: F Test: KETONE, URINE AUTO; Value: NEGATIVE; Range: NEGATIVE; Units: mg/dL; Status: F Test: UROBILINOGEN, URINE AUTO; Value: 0.2; Range: 0.0-2.0; Units: mg/dL; Status: F Test: BILIRUBIN, URINE AUTO; Value: NEGATIVE; Range: NEGATIVE; Status: F Test: NITRITE, URINE AUTO; Value: NEGATIVE; Range: NEGATIVE; Status: F Test: LEUKOCYTE ESTERASE, URINE AUTO; Value: NEGATIVE; Range: NEGATIVE; Status: F Test: BLOOD, URINE BLOOD; Value: 1+; Range: NEGATIVE; Abnormal: Above high normal; Status: F Test: WBC, URINE AUTO; Value: 1; Range: 0-3; Units: /HPF; Status: F Test: RBC, URINE AUTO; Value: 1; Range: 0-3; Units: /HPF; Status: F Test: BACTERIA, URINE AUTO; Value: NEGATIVE; Range: NEGATIVE; Status: F Test: SQUAMOUS EPITHELIAL CELL UR AU; Value: 3; Range: 0-6; Units: /HPF; Status: F Test: HYALINE CAST, URINE AUTO; Value: 0; Range: 0-1; Units: /LPF; Status: F Test: AMORPHOUS SEDIMENT; Value: SMALL; Range: NEGATIVE; Abnormal: Above high normal; Status: F Lab Order: Urine Culture; SPEC'M 11/22/16 20:47 Test: URINE CULTURE; Value: <EXTERNAL COMMENT eCWMed> FULL REPORT IN LAB NOTES (eCW and Medent).; Status: F Test: URINE CULTURE; Value: URINE CULTURE RESULT SPECIMEN APPEARS CONTAMINATED; Status: F Lab Order: HCG,Serum Qualitative; SPECM 11/22/16 20:47 Test: HCG, SERUM QUALITATIVE; Value: POSITIVE; Range: NEGATIVE; Abnormal: Abnormal; Status: F Lab Order: Wet Prep; SPEC11/22/16 20:47 Test: WET PREP; Value: WET PREP RESULT; Status: F Test: WET PREP; Value: FEW EPITHELIAL CELLS PRESENT; Status: F Test: WET PREP; Value: FEW WBC; Status: F Test: WET PREP; Value: MANY RBC; Status: F Test: WET PREP; Value: FEW LONG RODS PRESENT; Status: F Test: WET PREP; Value: FEW SHORT RODS PRESENT; Status: F Lab Order: GC & Chlamydia Amplification; SPEC11/22/16 20:47 Test: CHLAMYDIA DNA AMPLIFICATION; Value: NEGATIVE; Range: NEGATIVE; Status: F Test: GC DNA AMPLIFICATION; Value: NEGATIVE; Range: NEGATIVE; Status: F Lab Order: Basic Metabolic Profile; SPEC11/22/16 20:47 Test: GLUCOSE, FASTING; Value: 91; Range: 70-105; Units: MG/DL; Status: F Test: BLOOD UREA NITROGEN; Value: 10; Range: 7-18; Units: MG/DL; Status: F Test: CREATININE FOR GFR; Value: 0.69; Range: 0.55-1.02; Units: MG/DL; Status: F Test: GLOMERULAR FILTRATION RATE; Value: > 60.0; Range: >60; Status: F Test: SODIUM LEVEL; Value: 139; Range: 136-145; Units: MEQ/L; Status: F Test: POTASSIUM SERUM; Value: 3.4; Range: 3.5-5.1; Abnormal: Below low normal; Units: MEQ/L; Status: F Test: CHLORIDE LEVEL; Value: 103; Range: 98-107; Units: MEQ/L; Status: F Test: CARBON DIOXIDE LEVEL; Value: 29; Range: 21-32; Units: MEQ/L; Status: F Test: ANION GAP; Value: 7; Range: 8-16; Abnormal: Below low normal; Units: MEQ/L; Status: F Test: CALCIUM LEVEL; Value: 8.6; Range: 8.5-10.1; Units: MG/DL; Status: F Test Note: ; Units are mL/min/1.73 m2 Chronic Kidney Disease Staging per NKF: Stage I & II GFR >=60 Normal to Mildly Decreased Stage III GFR 30-59 Moderately Decreased Stage IV GFR 15-29 Severely Decreased Stage V GFR <15 Very Little GFR Left ESRD GFR <15 on SENIOR UNDERWRITING ASSISTANT Radiology Order: US 1st trimester Test: US 1st trimester REASON FOR EXAMINATION: Abdomen Pain; ; CLINICAL HISTORY: abdominal pain and vaginal spotting.; TECHNIQUE: Transabdominal and endovaginal ultrasound of the pelvis using grayscale and spectral Doppl; er flow.; FINDINGS:; Uterus is anteverted measuring 8.7 x 4.6 x 6.5 cm demonstrating a gestational sac with a mean sac brooks; meter of 9.7 mm correlating to 5 weeks, 5 days gestation. No yolk sac was visualized although a ; pole was seen with CRL measuring 4.8 mm correlating to 6 weeks, 1 days gestation.; No heartbeat or motion was detected.; Right ovary measures 2.6 x 1.9 x 2.1 cm and left ovary measures 2.4 x 1.6 x 2.1 cm; both demonstratin; g venous flow. A 1.3 x 1.7 x 1.2 cm right ovarian hemorrhagic follicle noted.; IMPRESSION:; No heart rate or motion was detected. While this raises suspicion for demise, given the s; ize of the CRL and gestational sac, findings may still represent an early IUP. Close clinical follow-; up with serial beta hCG and a short interim pelvic ultrasound is recommended to ensure a viable devel; oping gestation.; ; Outcome: 11/22 23:47 Discharge ordered by Provider. fg 11/23 00:13 Discharge Assessment: Patient awake, alert and oriented x 3. No cognitive and/or mlc functional deficits noted. Patient verbalized understanding of disposition instructions. patient administered narcotics - no. The following High Risk Discharge criteria are identified: None. Discharged to home ambulatory, with family. Condition: good Condition: stable. Discharge instructions given to patient, Instructed on discharge instructions, follow up and referral plans. Demonstrated understanding of instructions, Pt was receptive of discharge instructions/ teaching. Ultrasound Study completed. Property sent home with patient. 00:14 Patient left the ED. mlc Signatures: Dispatcher [employer] EDMS Sabrina Hogan, Reg Reg gb Kathryn Knapp,RN RN Chelsey Garcia RN RN ttCedric Borrego gr2 Melinda Rodriguez RN RN Suni Pacheco Frances, MD MD fg Redder, Kathie klr Matice, Tonya,RN RN tm5 Chart Complete GRETA
--- NOTE | 2016-11-25 20:44 | EDDOCDS ---
Physician Documentation [facility] Name: Florence Paez Age: 31 yrs Sex: Female : 1985 Arrival Date: 11/22/2016 Time: 20:00 Bed 7 Private MD: Tara [facility] [place] Disposition: 11/22/16 23:47 Discharged to Home/Self Care. Impression: Threatened . - Condition is Stable. - Discharge Instructions: Threatened Miscarriage, Pelvic Rest. - Medication Reconciliation, Local Pharmacy Hours form. - Follow up: OB Dorsey; When: Tomorrow; Reason: Recheck today's complaints. - Problem is new. - Symptoms have improved. Historical: - Allergies: Vicodin; Naproxen; - Home Meds: 1. Vitamin Oral tab 1 tab once daily - PMHx: none; - PSHx: Cesearean Section; - Social history: Smoking status: Patient states was never smoker of tobacco. No barriers to communication noted, The patient speaks fluent Mongolian. - Family history: Not pertinent. - : The pt / caregiver states he / she is not on anticoagulants. Home medication list is obtained from the patient. - Exposure Risk Screening:: None identified. BOX NAILER: 11/22 20:07 LMP 09/26/2016, Verified, EDC 07/03/2017, Gestational age from LMP: 8 weeks 2 tm5 days Vital Signs: 20:03 BP 131 / 58; Pulse 80; Resp 18 S; Temp 98.1; Pulse Ox 100% on R/A; Weight 74.84 kg / gr2 164.99 lbs (R); Height 5 ft. 1 in. (154.94 cm) (R); Pain 4/10; 20:43 BP 129 / 74 Supine (auto/); Pulse 85; Pulse Ox 99% on R/A; dsf 20:44 BP 133 / 77 Sitting (auto/); Pulse 89; Pulse Ox 99% on R/A; dsf 20:45 Pulse Ox 99% ; dsf 20:45 BP 139 / 74 Standing (auto/); Pulse 89; Pulse Ox 99% on R/A; dsf 11/23 00:13 BP 113 / 58; Pulse 75; Resp 18; Temp 99.0; Pulse Ox 97% ; Pain 0/10; mlc 02/22 20:03 Body Mass Index 31.18 (74.84 kg, 154.94 cm) gr2 MDM: 11/22 20:36 IV Saline Lock ordered. fg 20:36 Orthostatic VS ordered. fg 20:36 Undress patient appropriately for examination ordered. fg 20:36 Set up pelvic ordered. fg 20:37 Hcg, Serum Quantitative Ordered. EDMS 20:37 Rh Only Ordered. EDMS 20:37 Urinalysis Ordered. EDMS 20:37 Urine Culture Ordered. EDMS 20:37 HCG,Serum Qualitative Ordered. EDMS 20:37 Wet Prep Ordered. EDMS 20:37 GC & Chlamydia Amplification Ordered. EDMS 20:39 Basic Metabolic Profile Ordered. EDMS 21:29 Financial registration complete. gb 21:33 [facility] [place] Payment Agreement was scanned into [employer] and attached to record. gb 22:08 US 1st trimester Ordered. EDMS 22:40 Urinalysis Reviewed. cc10 22:40 HCG,Serum Qualitative Reviewed. cc10 22:40 Basic Metabolic Profile Reviewed. cc10 22:40 Hcg, Serum Quantitative Reviewed. cc10 22:40 Rh Only Reviewed. cc10 22:40 Wet Prep Reviewed. cc10 22:50 TRANSVAGINAL US Ordered. EDMS 22:50 DUPLEX SCAN LIMITED (DOPPLER) Ordered. EDKS 11/23 18:21 T-Sheet-- Draft Copy was scanned into [employer] and attached to record. klr Signatures: Dispatcher [employer] EDKS Sabrina Hogan, Reg Reg gb Lukasz James, PA-C PA-C [id number] Melinda Rodriguez RN RN [facility] [place] Char Silva MD MD fg Redder, Kathie klr Matice, Tonya, RN RN tm5 The chart was reviewed and I authenticate all verbal orders and agree with the evaluation and treatment provided.Attachments: 11/22 21:33 [facility] [place] Payment Agreement gb 11/23 18:21 T-Sheet-- Draft Copy klr Chart Complete MTDD
== END 2016-11-23 00:14 | disposition home or self-care (01) ==
LOC: M ED 20:00
DX: O20.0 Threatened abortion (principal); Z3A.08 8 weeks gestation of pregnancy; Z88.5 Allergy status to narcotic agent; Z88.6 Allergy status to analgesic agent

== ENCOUNTER 2017-04-27 12:15 | Emergency (ER) | payer OTHER ==
[~2017-04-27] VITALS: Ht 154.9 cm; Wt 71.8 kg
[2017-04-27] MEDS ORDERED: VITA50TA43 PO (12:26)
[2017-04-27] MEDS ORDERED: ZOFR4TAB3 PO (12:26)
[2017-04-27] MEDS ORDERED: PREN29TA4 PO (12:26)
[2017-04-27] MEDS ORDERED: METOCLOPRAMIDE INJ 10MG/2ML VIAL (J2765) IV ONE (12:45)
[2017-04-27] MEDS ORDERED: NS 1,000 ML IV ONE (12:45)
[2017-04-27 13:57] LABS: ANION GAP 10 MEQ/L (8-16); BLOOD UREA NITROGEN 7 MG/DL (7-18); CALCIUM LEVEL 9.3 MG/DL (8.5-10.1); CARBON DIOXIDE LEVEL 24 MEQ/L (21-32); CHLORIDE LEVEL 102 MEQ/L (98-107); CREATININE FOR GFR 0.62 MG/DL (0.55-1.02); GLOMERULAR FILTRATION RATE > 60.0 (>60); GLUCOSE, FASTING 83 MG/DL (70-105); POTASSIUM SERUM 3.5 MEQ/L (3.5-5.1); SODIUM LEVEL 136 MEQ/L (136-145)
[2017-04-27 14:13] LABS: BASO % 0.4 % (0.0-1.0); EOS # 0.1 K/mm3 (0.0-0.50); EOS % 1.1 % (0.0-3.0); LARGE UNSTAINED CELL # 0.1 K/mm3 (0.0-0.4); LARGE UNSTAINED CELL % 1.2 % (0.0-4.0); LYMPH # 1.2 K/mm3 (1.5-4.5); MEAN CORPUSCULAR HEMOGLOBIN 30.3 pg (27.0-33.0); MEAN CORPUSCULAR HGB CONC 34.7 g/dl (32.0-36.5); MEAN CORPUSCULAR VOLUME 87.2 fl (80.0-96.0); MONO # 0.3 K/mm3 (0.0-0.8); MONO % 3.8 % (0.0-5.0); NEUTROPHILS # 5.4 K/mm3 (1.8-7.7); NEUTROPHILS % 76.5 % (36.0-66.0); PLATELET COUNT, AUTOMATED 227 k/mm3 (150-450); RED CELL DISTRIBUTION WIDTH 12.5 % (11.5-14.5); WHITE BLOOD COUNT 7.1 K/mm3 (4.0-10.0)
[2017-04-27] MEDS ORDERED: UNIS25TA2 PO (16:26)
[2017-04-27] MEDS ORDERED: REGL10TA6 PO (16:26)
[2017-04-27 16:40] VITALS: BP 123/59
== END 2017-04-27 17:03 | disposition home or self-care (01) ==
LOC: M ED 12:15
DX: O21.0 Mild hyperemesis gravidarum (principal); Z3A.10 10 weeks gestation of pregnancy
CPT/HCPCS: 80048; 81001; 85025; 87086; 96374; 99282; J2765

== ENCOUNTER → 2017-08-20 | Outpatient (REF) | payer OTHER ==
[~2017-08-20] MED LIST: PREN29TA4 PO; REGL10TA6 PO; UNIS25TA2 PO; VITA50TA43 PO; ZOFR4TAB3 PO
== END ==
LOC: M SFHCLERA 17:30
PROVIDERS: ATTEND Nurse Practitioner Family
DX: J02.9 Acute pharyngitis, unspecified (principal)

== ENCOUNTER 2017-09-25 12:28 | Emergency (ER) | payer OTHER | END 2017-09-25 15:51 | disposition home or self-care (01) | LOC: M ED 12:28 | DX: J06.9 Acute upper respiratory infection, unspecified (principal); B34.9 Viral infection, unspecified; Z88.5 Allergy status to narcotic agent; Z88.8 Allergy status to other drugs, medicaments and biological substances | CPT/HCPCS: 87880 ==

== ENCOUNTER 2017-11-08 15:06 | Outpatient (CLI) | payer OTHER | END 2017-11-08 20:45 | disposition home or self-care (01) | LOC: M LDO 15:06 | DX: O99.89 Other specified diseases and conditions complicating pregnancy, childbirth and the puerperium (principal); Z3A.38 38 weeks gestation of pregnancy; W18.39XA Other fall on same level, initial encounter; R10.2 Pelvic and perineal pain; Z88.5 Allergy status to narcotic agent; Z88.8 Allergy status to other drugs, medicaments and biological substances | CPT/HCPCS: 76815 ==

== ENCOUNTER 2017-11-16 05:34 | Inpatient (IN) | payer OTHER ==
[2017-11-16] MEDS: BUPIVACAINE HCL 0.25% 10 ML VIAL XX (06:00)
[2017-11-16] MEDS: AZITHROMYCIN INJ 500 MG, VIAL MATE ADAPTER 1 EACH in D5W 250 ML IV (06:00)
[2017-11-16] MEDS: ACETAMINOPHEN 650 MG SUPP PR (06:00)
[2017-11-16] MEDS: LR 1,000 ML IV ×2 (06:00→10:36)
[2017-11-16 06:37] LABS: HEMATOCRIT 38.5 % (36.0-47.0); HEMOGLOBIN 12.9 g/dl (12.0-16.0); MEAN CORPUSCULAR HEMOGLOBIN 29.5 pg (27.0-33.0); MEAN CORPUSCULAR HGB CONC 33.5 g/dl (32.0-36.5); MEAN CORPUSCULAR VOLUME 88.1 fl (80.0-96.0); PLATELET COUNT, AUTOMATED 183 10^3/uL (150-450); RED BLOOD COUNT 4.37 10^6/uL (4.00-5.40); RED CELL DISTRIBUTION WIDTH 13.7 % (11.5-14.5); WHITE BLOOD COUNT 8.2 10^3/uL (4.0-10.0)
[2017-11-16] MEDS ORDERED: MORPHINE PRES-FREE INJ 10 MG/10 ML VIAL (J2274) As Ordered (07:21)
[2017-11-16] MEDS ORDERED: OXYTOCIN INJ 10 UNITS/ML VIAL (J2590) As Ordered ×5 (07:22→08:13)
[2017-11-16] MEDS ORDERED: ACETAMINOPHEN 650 MG SUPP As Ordered (07:23)
[2017-11-16] MEDS: BICITRA 30ML SOLN UDC PO (07:27)
[2017-11-16] MEDS ORDERED: NALBUPHINE HCL 10 MG/ML AMP (J2300) IV ×2 (07:42→09:15)
[2017-11-16] MEDS ORDERED: NALOXONE INJ 0.4 MG/1 ML VIAL (J2310) IV ×2 (07:42)
[2017-11-16] MEDS ORDERED: ONDANSETRON 4MG/2ML VIAL (J2405) IV ×2 (07:42→09:15)
[2017-11-16] MEDS ORDERED: PHENYLephrine HCL 500 MCG/5 ML (100MCG/ML) SYRINGE (J2370) As Ordered (08:13)
[2017-11-16] MEDS ORDERED: METOCLOPRAMIDE INJ 10MG/2ML VIAL (J2765) As Ordered (08:14)
[2017-11-16] MEDS ORDERED: ONDANSETRON 4MG/2ML VIAL (J2405) As Ordered (08:14)
[2017-11-16 08:49] LABS: CORD GAS ABE A -0.9; CORD GAS HCO3 A 27.1 MEQ/L; CORD GAS O2 SAT A 49.4 %; CORD GAS PCO2 A 57.6 mmHg; CORD GAS PH A 7.291 UNITS; CORD GAS PO2 A 23.2 mmHg; CORD GAS SBC A 22.4 MEQ/L; CORD GAS TCO2 A 28.9 MEQ/L
[2017-11-16 08:50] LABS: CORD GAS ABE V -2.7; CORD GAS HCO3 V 23.6 MEQ/L; CORD GAS PCO2 V 46.4 mmHg; CORD GAS PH V 7.325 UNITS; CORD GAS PO2 V 30.2 mmHg; CORD GAS SBC V 21.5 MEQ/L; CORD GAS TCO2 V 25.1 MEQ/L
[2017-11-16] MEDS: OXYTOCIN DRIP 30 UNITS in APPROPRIATE DILUENT 1 EA IV (08:57)
[2017-11-16] MEDS: OXYTOCIN INJ 10 UNITS/ML VIAL (J2590) IV (09:00)
[2017-11-16] MEDS ORDERED: ANUSOL HC CREAM 30GM TOP (09:00)
[2017-11-16] MEDS ORDERED: MEPERIDINE INJ 25 MG/ML VIAL (J2175) As Ordered (09:05)
[2017-11-16] MEDS ORDERED: HYDROmorphone HCL 1 MG/ML SYRINGE (J1170) IV (09:15)
[2017-11-16] MEDS ORDERED: fentaNYL 100 MCG/2 ML INJECTION (J3010) IV (09:15)
[2017-11-16] MEDS ORDERED: diphenhydrAMINE INJ 50MG/ML VIAL (J1200) IV (09:15)
[2017-11-16] MEDS ORDERED: PERCOCET 5MG/325MG TAB PO (09:15)
[2017-11-16] MEDS ORDERED: MEPERIDINE INJ 25 MG/ML VIAL (J2175) IV (09:15)
[2017-11-16] MEDS: PRENATAL VITAMINS CHEWABLE TABLET PO (10:19)
[2017-11-16] MEDS: PERCOCET 5MG/325MG TAB PO ×2 (11:04→16:31)
[2017-11-16] MEDS: IBUPROFEN 800 MG TAB PO ×2 (14:00→22:06)
[2017-11-16] MEDS: METOCLOPRAMIDE INJ 10MG/2ML VIAL (J2765) IV (16:30)
[2017-11-17] MEDS: PERCOCET 5MG/325MG TAB PO ×4 (04:50→20:18)
[2017-11-17] MEDS: IBUPROFEN 800 MG TAB PO ×3 (05:34→21:37)
[2017-11-17 06:32] LABS: HEMATOCRIT 34.5 % (36.0-47.0); HEMOGLOBIN 11.3 g/dl (12.0-16.0); MEAN CORPUSCULAR HEMOGLOBIN 29.3 pg (27.0-33.0); MEAN CORPUSCULAR HGB CONC 32.8 g/dl (32.0-36.5); MEAN CORPUSCULAR VOLUME 89.4 fl (80.0-96.0); PLATELET COUNT, AUTOMATED 157 10^3/uL (150-450); RED BLOOD COUNT 3.86 10^6/uL (4.00-5.40); RED CELL DISTRIBUTION WIDTH 13.9 % (11.5-14.5)
[2017-11-17] MEDS: PRENATAL VITAMINS CHEWABLE TABLET PO (10:11)
[2017-11-17] MEDS: SIMETHICONE 80 MG CHEW TAB PO (18:31)
[2017-11-17] MEDS: DOCUSATE SODIUM 100 MG CAP PO (20:18)
[2017-11-18] MEDS: PERCOCET 5MG/325MG TAB PO ×2 (02:11→07:55)
[2017-11-18] MEDS: IBUPROFEN 800 MG TAB PO (06:34)
[2017-11-18] MEDS: RHOGAM 300 MCG (1500 IU) INJ (J2790) IM (07:34)
[2017-11-18] MEDS: MEASLES,MUMPS,RUBELLA VACCINE INJ (MMR-II) (90707) SC (07:34)
[2017-11-18] MEDS: PRENATAL VITAMINS CHEWABLE TABLET PO (07:54)
[2017-11-18] MEDS: MOM 30ML SUSPENSION UDC PO (07:55)
== END 2017-11-18 13:00 | disposition home or self-care (01) | DRG 766 ==
LOC: M LDI 05:34 → M OBS 10:25
PROVIDERS: Obstetrics & Gynecology
PROC: 10D00Z1 Extraction of Products of Conception, Low, Open Approach (ICD-10-PCS; principal; 2017-11-16 07:31)
DX: O34.211 Maternal care for low transverse scar from previous cesarean delivery (principal); Z37.0 Single live birth; Z88.6 Allergy status to analgesic agent; Z88.5 Allergy status to narcotic agent; Z88.4 Allergy status to anesthetic agent; F53 Mental and behavioral disorders associated with the puerperium, not elsewhere classified; O99.344 Other mental disorders complicating childbirth; Z3A.39 39 weeks gestation of pregnancy